=== PATIENT | female | born 1970 | race Caucasian/White ===

== ENCOUNTER 2019-06-28 17:52 | Emergency (ER) | payer OTHER ==
[~2019-06-28] VITALS: Ht 157.5 cm; Wt 77.1 kg
[2019-06-28] MEDS ORDERED: PEPCID AC20 MG PO (18:08)
[2019-06-28] MEDS ORDERED: LOSARTAN POTAS100 MG PO (18:09)
[2019-06-28] MEDS ORDERED: TOPROL XL25 M1 PO (18:09)
== END 2019-06-28 23:47 | disposition home or self-care (01) ==
LOC: ER 17:52
DX: N20.0 Calculus of kidney (principal); R10.31 Right lower quadrant pain